=== PATIENT | male | born 1960 | race Caucasian/White ===

== ENCOUNTER 2016-10-04 15:07 | Inpatient (IN) ==
--- NOTE | 2016-10-04 15:14 | Emergency Department Note ---
Disposition Clinical Impression: Depression Disposition: Still a Patient Referrals: NO,PCP [Primary Care Provider] - Forms: ED Satisfaction Letter Psych HPI - General Chief Complaint: ED Psychiatric Symptoms Stated Complaint: SI Time Seen by Provider: 10/04/16 15:10 Source: patient Mode of arrival: ambulatory Limitations: no limitations Nursing Notes Reviewed: Yes Vital Signs Reviewed: Yes - History of Present Illness HPI Narrative: 56-year-old who comes in complaining of depression and suicidal ideation. Patient states he has been drinking today. Patient when asked did give sarcastic answers. When asked when his depression started he stated his birthday. Pt complaint: suicidal ideation, feels depressed If medical clearance, reason: psychiatric condition Onset (ago): unknown Duration: constant History of similar episodes: Yes Improves with: none Worsens with: none Context: recent alcohol abuse Alleged intoxication: Yes Associated Psychiatric Symptoms: depression, suicidal ideation Associated symptoms: Reports: denies other symptoms Treatments prior to arrival: none - Related Data Previous Rx's Medication Instructions Recorded Chlordiazepoxide [Librium] 25 mg PO TID #60 capsule 05/27/16 Folic Acid 1 mg PO DAILY #30 tablet 05/27/16 Thiamine (B-1) [Vitamin B-1] 100 mg PO DAILY #30 tablet 05/27/16 Allergies Allergy/AdvReac Type Severity Reaction Status Date / Time No Known Allergies Allergy Verified 04/21/15 13:40 Constitutional: Denies: fever, chills, weakness, weight change Eyes: Denies: eye pain, eye discharge, vision change ENT ED: Denies: ear pain, throat pain, dental pain, hearing loss, epistaxis, congestion, dysphagia Cardiovascular: Denies: chest pain, palpitations, dyspnea on exertion, edema, syncope Respiratory: Denies: cough, dyspnea, wheezes, hemoptysis, stridor Gastrointestinal: Denies: abdominal pain, nausea, vomiting, diarrhea, constipation, hematemesis, melena, hematochezia Genitourinary: Denies: urgency, dysuria, frequency, hematuria Musculoskeletal: Denies: back pain, neck pain, arthralgia, myalgia Integumentary: Denies: rash, abrasion, lesions Neurological: Denies: headache, weakness, numbness, paresthesias, confusion, abnormal gait, vertigo Psychiatric: Reports: depression, suicidal thoughts. Denies: anxiety, homicidal thoughts, auditory hallucinations, visual hallucinations Endocrine: Denies: fatigue Hematological/Lymphatic: Denies: easy bleeding, easy bruising Allergic/Immunologic: Denies: facial swelling, urticaria Past Medical History - Past Medical History Medical history: Reports: cancer, hepatitis Surgical history: Reports: appendectomy Psychiatric history: Reports: PTSD - Social History Smoking Status: Current every day smoker Smokeless Tobacco Status: No Alcohol use: Reports: occasionally Drug use: Reports: none Physical Exam - General Limitations: no limitations General appearance: alert, in no apparent distress - Head Head exam: atraumatic, normocephalic, normal inspection - Eye Eye exam: Present: normal appearance, PERRL, EOMI - ENT ENT exam: normal exam, normal oropharynx, mucous membranes moist - Neck Neck exam: Present: normal inspection, full ROM, trachea midline - Chest Chest inspection: Present: normal inspection, symmetric chest wall rise - Respiratory Respiratory exam: Present: normal lung sounds bilaterally - Cardiovascular Cardiovascular exam: Present: regular rate, normal rhythm, normal heart sounds - Abdominal Exam Abdominal exam: Present: soft, Non-Tender. Absent: tenderness, distention, guarding, rebound, rigidity - Extremities Exam Extremities exam: Present: normal inspection, full ROM. Absent: tenderness, pedal edema - Expanded Lower Extremity Exam Neurovascular/Tendon exam: Absent: motor deficit, sensory deficit, tendon deficit Gait: observed and normal - Back Exam Back exam: Present: normal inspection, full ROM. Absent: tenderness - Neurological Exam Neurological exam: Present: alert, oriented X3 - Psychiatric Psychiatric exam: Present: depressed, agitated - Skin Skin exam: Present: warm, dry, intact, normal color Course Vital Signs Temperature 98.2 F 10/04/16 15:10 Pulse Rate 65 10/04/16 15:10 Respiratory Rate 16 10/04/16 15:10 Blood Pressure 128/89 10/04/16 15:10 O2 Sat by Pulse Oximetry 95 10/04/16 15:10 Temperature 98.2 F 10/04/16 15:10 Pulse Rate 65 10/04/16 15:10 Respiratory Rate 16 10/04/16 15:10 Blood Pressure 128/89 10/04/16 15:10 O2 Sat by Pulse Oximetry 95 10/04/16 15:10 Oxygen Delivery Oxygen Delivery Room Air Psych - Lab Data Result diagrams: 10/04/16 15:47 10/04/16 15:47 Lab Results 10/04/16 10/04/16 10/04/16 Range/Units 15:17 15:17 15:47 WBC 7.5 (4.3-11.1) K/mcL RBC 4.10 L (4.19-5.50) M/mcL Hgb 13.1 (12.9-16.9) g/dL Hct 38.6 (37.5-50.1) % MCV 94.1 (83.0-100.0) fL MCH 32.0 (28.0-33.3) pg MCHC 33.9 (31.6-35.5) g/dL RDW 14.5 (11.5-14.5) % Plt Count 182 (140-400) K/mcL MPV 9.4 (9.4-12.4) fL Immature Gran % 0.3 (0-4) % Seg Neutrophils % 67.4 % Lymphocytes % 23.8 % Monocytes % 6.9 % Eosinophils % 1.3 % Basophils % 0.3 % Neutrophils # 5.1 (1.6-8.9) K/mcL Lymphocytes # 1.8 (0.6-4.6) K/mcL Monocytes # 0.5 (0.0-1.3) K/mcL Eosinophils # 0.1 (0.0-0.6) K/mcL Basophils # 0.0 (0.0-0.2) K/mcL Sodium (136-145) mEq/L Potassium (3.5-4.5) mEq/L Chloride (98-109) mEq/L Carbon Dioxide (19-29) mEq/L BUN (8-26) mg/dL Creatinine (0.72-1.25) mg/dL Est GFR ( Amer) (> 60) Est GFR (Non-Af Amer) (> 60) BUN/Creatinine Ratio (6-26) Glucose (70-99) mg/dL Calculated Osmolality (280-300) Calcium (8.6-10.8) mg/dL Urine Color Yellow (Yellow) Urine Clarity Clear (Clear) Urine pH 6.5 (5.0-8.0) pH Units Ur Specific [place] < 1.005 L (1.010-1.025) Urine Protein Negative (Neg-Trace) mg/dL Urine Glucose (UA) Normal (Normal) mg/dL Urine Ketones Negative (Negative) mg/dL Urine Blood Negative (Negative) Urine Nitrite Negative (Negative) Urine Bilirubin Negative (Negative) Urine Urobilinogen Normal (Normal) mg/dL Ur Leukocyte Esterase Negative (Negative) Salicylates (15-30) mg/dL Urine Opiates Screen Negative (Sqawep=475) ng/mL Acetaminophen (10-30) mcg/mL Ur Barbiturates Screen Negative (Zxccds=904) ng/mL Ur Phencyclidine Scrn Negative (Cutoff=25) ng/mL Ur Amphetamines Screen Negative (Oowywe=4553) ng/mL U Benzodiazepines Scrn Negative (Flvppm=853) ng/mL Urine Cocaine Screen Negative (Cutoff= 300) ng/mL U Marijuana (THC) Screen Negative (Cutoff = 50) ng/mL Ethyl Alcohol (0-10) mg/dL 10/04/16 10/04/16 Range/Units 15:47 21:16 WBC (4.3-11.1) K/mcL RBC (4.19-5.50) M/mcL Hgb (12.9-16.9) g/dL Hct (37.5-50.1) % MCV (83.0-100.0) fL MCH (28.0-33.3) pg MCHC (31.6-35.5) g/dL RDW (11.5-14.5) % Plt Count (140-400) K/mcL MPV (9.4-12.4) fL Immature Gran % (0-4) % Seg Neutrophils % % Lymphocytes % % Monocytes % % Eosinophils % % Basophils % % Neutrophils # (1.6-8.9) K/mcL Lymphocytes # (0.6-4.6) K/mcL Monocytes # (0.0-1.3) K/mcL Eosinophils # (0.0-0.6) K/mcL Basophils # (0.0-0.2) K/mcL Sodium 140 (136-145) mEq/L Potassium 4.1 (3.5-4.5) mEq/L Chloride 105 (98-109) mEq/L Carbon Dioxide 21 (19-29) mEq/L BUN 8 (8-26) mg/dL Creatinine 0.89 (0.72-1.25) mg/dL Est GFR ( Amer) > 60 (> 60) Est GFR (Non-Af Amer) > 60 (> 60) BUN/Creatinine Ratio 9 (6-26) Glucose 100 H (70-99) mg/dL Calculated Osmolality 288 (280-300) Calcium 8.7 (8.6-10.8) mg/dL Urine Color (Yellow) Urine Clarity (Clear) Urine pH (5.0-8.0) pH Units Ur Specific [place] (1.010-1.025) Urine Protein (Neg-Trace) mg/dL Urine Glucose (UA) (Normal) mg/dL Urine Ketones (Negative) mg/dL Urine Blood (Negative) Urine Nitrite (Negative) Urine Bilirubin (Negative) Urine Urobilinogen (Normal) mg/dL Ur Leukocyte Esterase (Negative) Salicylates < 5.0 L (15-30) mg/dL Urine Opiates Screen (Ckrxee=438) ng/mL Acetaminophen < 1.0 L (10-30) mcg/mL Ur Barbiturates Screen (Jnxkoe=868) ng/mL Ur Phencyclidine Scrn (Cutoff=25) ng/mL Ur Amphetamines Screen (Kwvibo=5484) ng/mL U Benzodiazepines Scrn (Ysoatg=811) ng/mL Urine Cocaine Screen (Cutoff= 300) ng/mL U Marijuana (THC) Screen (Cutoff = 50) ng/mL Ethyl Alcohol 212 H 58 H (0-10) mg/dL Psychiatric Medical Clearance - Medical Clearance Checklist Medical History: No Social History Section defined Current Vitals: Last Vital Signs Temp 98.2 F 10/04/16 15:10 Pulse 65 10/04/16 15:10 Resp 16 10/04/16 15:10 BP 128/89 10/04/16 15:10 Pulse Ox 95 10/04/16 15:10 Psychiatric Lab Panel: Drug Levels and Toxicity 10/04/16 10/04/16 10/04/16 15:17 15:47 21:16 Urine Opiates Screen Negative Acetaminophen < 1.0 L Ur Barbiturates Screen Negative Ur Phencyclidine Scrn Negative Ur Amphetamines Screen Negative U Benzodiazepines Scrn Negative Urine Cocaine Screen Negative U Marijuana (THC) Screen Negative Ethyl Alcohol 212 H 58 H Abnormal Labs: Abnormal lab results RBC 4.10 M/mcL (4.19-5.50) L 10/04/16 15:47 Glucose 100 mg/dL (70-99) H 10/04/16 15:47 Ur Specific [place] < 1.005 (1.010-1.025) L 10/04/16 15:17 Salicylates < 5.0 mg/dL (15-30) L 10/04/16 15:47 Acetaminophen < 1.0 mcg/mL (10-30) L 10/04/16 15:47 Ethyl Alcohol 58 mg/dL (0-10) H 10/04/16 21:16 Statement of Medical Clearance: I have evaluated the patient, reviewed diagnostic information, and certify that the patient's medical condition is sufficiently stable that transfer to the psychiatric unit does not pose a significant risk of deterioration. S.B.A.R. - S.B.A.R. Recommendation: Recommendation based on pending studies, treatments, or consults S.B.A.RJustin Report Given to: Dr Rafael HicksBJustinADominik Repor Time: 23:00 (Patient is pending 1 a evaluation disposition based on their findings.)
[2016-10-04 15:36] LABS: Bilirubin,Urine Negative (Negative); Blood,Urine Negative (Negative); Clarity,Urine Clear (Clear); Color,Urine Yellow (Yellow); Glucose,Urine (UA) Normal (Normal); Ketones,Urine Negative (Negative); Leukocyte Esterase,Urine Negative (Negative); Nitrite,Urine Negative (Negative); PH,Urine 6.5 pH Units (5.0-8.0); Protein,Urine Negative (Neg-Trace); Specific Gravity,Urine < 1.005 (1.010-1.025); Urobilinogen,Urine Normal (Normal)
[2016-10-04 15:43] LABS: Amphetamine Screen,Urine Negative ng/mL (Cutoff=1000); Barbiturate Screen,Urine Negative ng/mL (Cutoff=200); Benzodiazepines Screen,Urine Negative ng/mL (Cutoff=200); Cannabinoid Screen,Urine Negative ng/mL (Cutoff = 50); Cocaine Screen,Urine Negative ng/mL (Cutoff= 300); Opiate Screen,Urine Negative ng/mL (Cutoff=300); Phencyclidine Screen,Urine Negative ng/mL (Cutoff=25)
[2016-10-04 16:11] LABS: Basophils % 0.3 %; Eosinophils # 0.1 K/mcL (0.0-0.6); Eosinophils % 1.3 %; Hematocrit 38.6 % (37.5-50.1); Hemoglobin 13.1 g/dL (12.9-16.9); Immature Granulocytes % 0.3 % (0-4); Lymphocytes # 1.8 K/mcL (0.6-4.6); Lymphocytes % 23.8 %; Mean Corpuscular HGB Conc 33.9 g/dL (31.6-35.5); Mean Corpuscular Volume 94.1 fL (83.0-100.0); Mean Platelet Volume 9.4 fL (9.4-12.4); Monocytes # 0.5 K/mcL (0.0-1.3); Monocytes % 6.9 %; Neutrophils # 5.1 K/mcL (1.6-8.9); Platelet Count 182 K/mcL (140-400); Red Cell Distribution Width 14.5 % (11.5-14.5); Segmented Neutrophils % 67.4 %
[2016-10-04 16:27] LABS: BUN/Creatinine Ratio 9 (6-26); Blood Urea Nitrogen 8 mg/dL (8-26); Calcium 8.7 mg/dL (8.6-10.8); Carbon Dioxide 21 mEq/L (19-29); Chloride 105 mEq/L (98-109); Ethanol 212 mg/dL (0-10); Glucose 100 mg/dL (70-99); Osmolality,Calculated 288 (280-300); Potassium 4.1 mEq/L (3.5-4.5); Sodium 140 mEq/L (136-145); eGFR For African Americans > 60 (> 60); eGFR For Non-African Americans > 60 (> 60)
[2016-10-04 16:28] LABS: Acetaminophen < 1.0 mcg/mL (10-30); Salicylate < 5.0 mg/dL (15-30)
[2016-10-04] MEDS ORDERED: *HR* LORazepam 1 MG TABLET PO ONE (23:53)
[2016-10-05] MEDS: Nicotine 14 MG PATCH.TD24 TD SCH ×2 (00:02→08:27)
[2016-10-05 01:12] LABS: Ethanol < 10 mg/dL (0-10)
[2016-10-05 01:34] LABS: Thyroid Stimulating Hormone 0.703 mcIU/mL (0.350-4.840)
[2016-10-05] MEDS ORDERED: *HR* LORazepam 1 MG TABLET PO ONE ×4 (04:20→16:03)
--- NOTE | 2016-10-05 07:41 | Emergency Department Note ---
Disposition Clinical Impression: Suicidal ideation Depression Qualifiers: Depression Type: unspecified Qualified Code(s): F32.9 - Major depressive disorder, single episode, unspecified Disposition: Transfer Psychiatric Hosp Condition: Fair Referrals: NO,PCP [Primary Care Provider] - Forms: ED Satisfaction Letter Psych HPI - General Chief Complaint: ED Psychiatric Symptoms Stated Complaint: SI Time Seen by Provider: 10/04/16 15:10 Source: patient Mode of arrival: ambulatory Nursing Notes Reviewed: Yes Vital Signs Reviewed: Yes - History of Present Illness Duration: constant Improves with: none Worsens with: none Associated symptoms: Reports: denies other symptoms Treatments prior to arrival: none - Related Data Previous Rx's Medication Instructions Recorded Chlordiazepoxide [Librium] 25 mg PO TID #60 capsule 05/27/16 Folic Acid 1 mg PO DAILY #30 tablet 05/27/16 Thiamine (B-1) [Vitamin B-1] 100 mg PO DAILY #30 tablet 05/27/16 Allergies Allergy/AdvReac Type Severity Reaction Status Date / Time No Known Allergies Allergy Verified 04/21/15 13:40 Constitutional: Denies: fever, chills, weakness, weight change Eyes: Denies: eye pain, eye discharge, vision change ENT ED: Denies: ear pain, throat pain, dental pain, hearing loss, epistaxis, congestion, dysphagia Cardiovascular: Denies: chest pain, palpitations, dyspnea on exertion, edema, syncope Respiratory: Denies: cough, dyspnea, wheezes, hemoptysis, stridor Gastrointestinal: Denies: abdominal pain, nausea, vomiting, diarrhea, constipation, hematemesis, melena, hematochezia Genitourinary: Denies: urgency, dysuria, frequency, hematuria Musculoskeletal: Denies: back pain, neck pain, arthralgia, myalgia Integumentary: Denies: rash, abrasion, lesions Neurological: Denies: headache, weakness, numbness, paresthesias, confusion, abnormal gait, vertigo Psychiatric: Reports: depression, suicidal thoughts. Denies: anxiety, homicidal thoughts, auditory hallucinations, visual hallucinations Endocrine: Denies: fatigue Hematological/Lymphatic: Denies: easy bleeding, easy bruising Allergic/Immunologic: Denies: facial swelling, urticaria Past Medical History - Past Medical History Medical history: Reports: cancer, hepatitis Surgical history: Reports: appendectomy Psychiatric history: Reports: PTSD - Social History Smoking Status: Current every day smoker Smokeless Tobacco Status: No Alcohol use: Reports: occasionally Drug use: Reports: none Physical Exam - General Limitations: no limitations General appearance: alert, in no apparent distress Course Course Narrative: This patient was signed out to me at shift change from Dr. Goyal. Please refer to his note for complete details of the history and physical examination. At shift change the patient has been medically cleared and is awaiting evaluation by the [facility]. Patient was seen and evaluated by the [facility] and they recommended inpatient admission. There are currently no beds available at this facility and the psych services working on placement and transfer of this patient. Shift change the patient is still awaiting placement at another facility. Patient was discussed with the oncoming dayshift teen, Dr. Glasgow and Dr. Carbajal, however the charting is been completed on this patient and they should not have to perform any charting or intervention on the patient unless there is a change in disposition or condition. Vital Signs Temperature 98.2 F 10/04/16 15:10 Pulse Rate 65 10/04/16 15:10 Respiratory Rate 16 10/04/16 15:10 Blood Pressure 128/89 10/04/16 15:10 O2 Sat by Pulse Oximetry 95 10/04/16 15:10 Temperature 98.2 F 10/04/16 15:10 Pulse Rate 64 10/05/16 06:45 Respiratory Rate 16 10/05/16 06:45 Blood Pressure 160/93 10/05/16 06:45 O2 Sat by Pulse Oximetry 98 10/05/16 06:45 Oxygen Delivery Oxygen Delivery Room Air Psych - Lab Data Result diagrams: 10/04/16 15:47 10/04/16 15:47 Lab Results 10/04/16 10/04/16 10/04/16 Range/Units 15:17 15:17 15:47 WBC 7.5 (4.3-11.1) K/mcL RBC 4.10 L (4.19-5.50) M/mcL Hgb 13.1 (12.9-16.9) g/dL Hct 38.6 (37.5-50.1) % MCV 94.1 (83.0-100.0) fL MCH 32.0 (28.0-33.3) pg MCHC 33.9 (31.6-35.5) g/dL RDW 14.5 (11.5-14.5) % Plt Count 182 (140-400) K/mcL MPV 9.4 (9.4-12.4) fL Immature Gran % 0.3 (0-4) % Seg Neutrophils % 67.4 % Lymphocytes % 23.8 % Monocytes % 6.9 % Eosinophils % 1.3 % Basophils % 0.3 % Neutrophils # 5.1 (1.6-8.9) K/mcL Lymphocytes # 1.8 (0.6-4.6) K/mcL Monocytes # 0.5 (0.0-1.3) K/mcL Eosinophils # 0.1 (0.0-0.6) K/mcL Basophils # 0.0 (0.0-0.2) K/mcL Sodium (136-145) mEq/L Potassium (3.5-4.5) mEq/L Chloride (98-109) mEq/L Carbon Dioxide (19-29) mEq/L BUN (8-26) mg/dL Creatinine (0.72-1.25) mg/dL Est GFR ( Amer) (> 60) Est GFR (Non-Af Amer) (> 60) BUN/Creatinine Ratio (6-26) Glucose (70-99) mg/dL Calculated Osmolality (280-300) Calcium (8.6-10.8) mg/dL TSH (0.350-4.840) mcIU/mL Urine Color Yellow (Yellow) Urine Clarity Clear (Clear) Urine pH 6.5 (5.0-8.0) pH Units Ur Specific [place] < 1.005 L (1.010-1.025) Urine Protein Negative (Neg-Trace) mg/dL Urine Glucose (UA) Normal (Normal) mg/dL Urine Ketones Negative (Negative) mg/dL Urine Blood Negative (Negative) Urine Nitrite Negative (Negative) Urine Bilirubin Negative (Negative) Urine Urobilinogen Normal (Normal) mg/dL Ur Leukocyte Esterase Negative (Negative) Salicylates (15-30) mg/dL Urine Opiates Screen Negative (Svvzxs=017) ng/mL Acetaminophen (10-30) mcg/mL Ur Barbiturates Screen Negative (Zakjjp=539) ng/mL Ur Phencyclidine Scrn Negative (Cutoff=25) ng/mL Ur Amphetamines Screen Negative (Rxwddl=1829) ng/mL U Benzodiazepines Scrn Negative (Klmefz=849) ng/mL Urine Cocaine Screen Negative (Cutoff= 300) ng/mL U Marijuana (THC) Screen Negative (Cutoff = 50) ng/mL Ethyl Alcohol (0-10) mg/dL 10/04/16 10/04/16 10/05/16 Range/Units 15:47 21:16 00:54 WBC (4.3-11.1) K/mcL RBC (4.19-5.50) M/mcL Hgb (12.9-16.9) g/dL Hct (37.5-50.1) % MCV (83.0-100.0) fL MCH (28.0-33.3) pg MCHC (31.6-35.5) g/dL RDW (11.5-14.5) % Plt Count (140-400) K/mcL MPV (9.4-12.4) fL Immature Gran % (0-4) % Seg Neutrophils % % Lymphocytes % % Monocytes % % Eosinophils % % Basophils % % Neutrophils # (1.6-8.9) K/mcL Lymphocytes # (0.6-4.6) K/mcL Monocytes # (0.0-1.3) K/mcL Eosinophils # (0.0-0.6) K/mcL Basophils # (0.0-0.2) K/mcL Sodium 140 (136-145) mEq/L Potassium 4.1 (3.5-4.5) mEq/L Chloride 105 (98-109) mEq/L Carbon Dioxide 21 (19-29) mEq/L BUN 8 (8-26) mg/dL Creatinine 0.89 (0.72-1.25) mg/dL Est GFR ( Amer) > 60 (> 60) Est GFR (Non-Af Amer) > 60 (> 60) BUN/Creatinine Ratio 9 (6-26) Glucose 100 H (70-99) mg/dL Calculated Osmolality 288 (280-300) Calcium 8.7 (8.6-10.8) mg/dL TSH 0.703 (0.350-4.840) mcIU/mL Urine Color (Yellow) Urine Clarity (Clear) Urine pH (5.0-8.0) pH Units Ur Specific [place] (1.010-1.025) Urine Protein (Neg-Trace) mg/dL Urine Glucose (UA) (Normal) mg/dL Urine Ketones (Negative) mg/dL Urine Blood (Negative) Urine Nitrite (Negative) Urine Bilirubin (Negative) Urine Urobilinogen (Normal) mg/dL Ur Leukocyte Esterase (Negative) Salicylates < 5.0 L (15-30) mg/dL Urine Opiates Screen (Btncoi=646) ng/mL Acetaminophen < 1.0 L (10-30) mcg/mL Ur Barbiturates Screen (Rqddwc=904) ng/mL Ur Phencyclidine Scrn (Cutoff=25) ng/mL Ur Amphetamines Screen (Uewtso=1013) ng/mL U Benzodiazepines Scrn (Wlsakl=034) ng/mL Urine Cocaine Screen (Cutoff= 300) ng/mL U Marijuana (THC) Screen (Cutoff = 50) ng/mL Ethyl Alcohol 212 H 58 H < 10 (0-10) mg/dL Psychiatric Medical Clearance - Medical Clearance Checklist Medical History: No Social History Section defined Current Vitals: Last Vital Signs Temp 98.2 F 10/04/16 15:10 Pulse 64 10/05/16 06:45 Resp 16 10/05/16 06:45 BP 160/93 10/05/16 06:45 Pulse Ox 98 10/05/16 06:45 Psychiatric Lab Panel: Drug Levels and Toxicity 10/04/16 10/04/16 10/04/16 15:17 15:47 21:16 Urine Opiates Screen Negative Acetaminophen < 1.0 L Ur Barbiturates Screen Negative Ur Phencyclidine Scrn Negative Ur Amphetamines Screen Negative U Benzodiazepines Scrn Negative Urine Cocaine Screen Negative U Marijuana (THC) Screen Negative Ethyl Alcohol 212 H 58 H 10/05/16 00:54 Urine Opiates Screen Acetaminophen Ur Barbiturates Screen Ur Phencyclidine Scrn Ur Amphetamines Screen U Benzodiazepines Scrn Urine Cocaine Screen U Marijuana (THC) Screen Ethyl Alcohol < 10 Abnormal Labs: Abnormal lab results RBC 4.10 M/mcL (4.19-5.50) L 10/04/16 15:47 Glucose 100 mg/dL (70-99) H 10/04/16 15:47 Ur Specific [place] < 1.005 (1.010-1.025) L 10/04/16 15:17 Salicylates < 5.0 mg/dL (15-30) L 10/04/16 15:47 Acetaminophen < 1.0 mcg/mL (10-30) L 10/04/16 15:47 Statement of Medical Clearance: I have evaluated the patient, reviewed diagnostic information, and certify that the patient's medical condition is sufficiently stable that transfer to the psychiatric unit does not pose a significant risk of deterioration.
[2016-10-05] MEDS ORDERED: Ibuprofen 400 MG TABLET PO PRN (16:44)
[2016-10-05] MEDS ORDERED: *HR* LORazepam 2 MG/ML VIAL IM PRN (16:44)
[2016-10-05] MEDS ORDERED: Haloperidol Lactate 5 MG/ML VIAL IM PRN (16:44)
[2016-10-05] MEDS: hydrOXYzine pamoate 25 MG CAPSULE PO PRN (18:58)
[2016-10-05] MEDS: *HR* LORazepam 1 MG TABLET PO PRN (20:11)
[2016-10-05] MEDS: traZODone 50 MG TABLET PO PRN ×2 (20:14→23:25)
[2016-10-06] MEDS: *HR* LORazepam 1 MG TABLET PO PRN ×4 (01:01→19:54)
[2016-10-06] MEDS: Nicotine 14 MG PATCH.TD24 TD SCH (08:43)
--- NOTE | 2016-10-06 11:25 | Psychiatry History & Physical ---
Date of Encounter: 10/06/16 Time of Encounter: 11:23 History of Present Illness Patient Stated Chief Complaint: suicidal, homeless Medicare Admission Attestation: For traditional Medicare patients the provided hospital inpatient services are reasonable and necessary and in the case of services not specified as inpatient -only under 42 CFR 419.22 (n), that they are appropriately provided as inpatient services in accordance 42 CFR 412.3. For Critical Access Hospital the patient may reasonably be expected to be discharged or transferred to a hospital within 96 hours after admission to the Critical Access Hospital. Admitted From: Emergency Dept History of Present Illness: Mr. Pro is a 56 year old male with long history of alcohol dependence and intoxication admitted for making suicidal threats and also he is homeless and on no medication, in the past he never followed up after discharge from the hospital. Past Med Surg Social Fam HX - Past Medical History Medical history: cancer, hepatitis - Past Psychiatric History Psychiatric history: Reports: no psych history - Past Surgical History Surgical History: appendectomy - Social History Smoking Status: Current every day smoker Smokeless Tobacco Status: No Alcohol use: occasionally Drug use: none Medications & Allergies Chlordiazepoxide [Librium] 25 mg PO TID #60 capsule 05/27/16 [Rx] Folic Acid 1 mg PO DAILY #30 tablet 05/27/16 [Rx] Thiamine (B-1) [Vitamin B-1] 100 mg PO DAILY #30 tablet 05/27/16 [Rx] Allergies No Known Allergies Allergy (Verified 04/21/15 13:40) Review of Systems Psychiatric: Reports: suicidal ideation, auditory hallucinations, visual hallucinations, confusion Mental Status Exam Patient orientation: Yes Person, Yes Time, Yes Place Level of alertness: Alert Patient appearance: Unkempt, Disheveled, Malodorous, Bizarre Behavior: nervous, anxious, distractible Psychomotor activity: Increased Eye contact: Maintains Eye Contact Mood description: Anxious, Irritable Affect description: labile, dysphoric Speech pattern: Coherent, Repetitive, Confabulation Speech volume: Normal Thought process: Linear, Goal Oriented Thought content: Yes Suicidal ideation Perceptual disturbances: No Auditory hallucinations, No Visual hallucinations Attention span: Capable of Focused Attention Memory description: Grossly Intact Patient reliability: Questionable Historian Intelligence estimate: Average Judgment: Limited Insight: Minimal Results - Vital Signs Vital signs: Temp Pulse Resp BP Pulse Ox 98.6 F 78 18 130/104 95 10/06/16 09:00 10/06/16 09:00 10/06/16 09:00 10/06/16 09:00 10/05/16 15:54 - Labs Labs: Laboratory Last Values WBC 7.5 K/mcL (4.3-11.1) 10/04/16 15:47 RBC 4.10 M/mcL (4.19-5.50) L 10/04/16 15:47 Hgb 13.1 g/dL (12.9-16.9) 10/04/16 15:47 Hct 38.6 % (37.5-50.1) 10/04/16 15:47 MCV 94.1 fL (83.0-100.0) 10/04/16 15:47 MCH 32.0 pg (28.0-33.3) 10/04/16 15:47 MCHC 33.9 g/dL (31.6-35.5) 10/04/16 15:47 RDW 14.5 % (11.5-14.5) 10/04/16 15:47 Plt Count 182 K/mcL (140-400) 10/04/16 15:47 MPV 9.4 fL (9.4-12.4) 10/04/16 15:47 Immature Gran % 0.3 % (0-4) 10/04/16 15:47 Seg Neutrophils % 67.4 % 10/04/16 15:47 Lymphocytes % 23.8 % 10/04/16 15:47 Monocytes % 6.9 % 10/04/16 15:47 Eosinophils % 1.3 % 10/04/16 15:47 Basophils % 0.3 % 10/04/16 15:47 Neutrophils # 5.1 K/mcL (1.6-8.9) 10/04/16 15:47 Lymphocytes # 1.8 K/mcL (0.6-4.6) 10/04/16 15:47 Monocytes # 0.5 K/mcL (0.0-1.3) 10/04/16 15:47 Eosinophils # 0.1 K/mcL (0.0-0.6) 10/04/16 15:47 Basophils # 0.0 K/mcL (0.0-0.2) 10/04/16 15:47 Sodium 140 mEq/L (136-145) 10/04/16 15:47 Potassium 4.1 mEq/L (3.5-4.5) 10/04/16 15:47 Chloride 105 mEq/L (98-109) 10/04/16 15:47 Carbon Dioxide 21 mEq/L (19-29) 10/04/16 15:47 BUN 8 mg/dL (8-26) 10/04/16 15:47 Creatinine 0.89 mg/dL (0.72-1.25) 10/04/16 15:47 Est GFR ( Amer) > 60 (> 60) 10/04/16 15:47 Est GFR (Non-Af Amer) > 60 (> 60) 10/04/16 15:47 BUN/Creatinine Ratio 9 (6-26) 10/04/16 15:47 Glucose 100 mg/dL (70-99) H 10/04/16 15:47 Calculated Osmolality 288 (280-300) 10/04/16 15:47 Calcium 8.7 mg/dL (8.6-10.8) 10/04/16 15:47 TSH 0.703 mcIU/mL (0.350-4.840) 10/05/16 00:54 Urine Color Yellow (Yellow) 10/04/16 15:17 Urine Clarity Clear (Clear) 10/04/16 15:17 Urine pH 6.5 pH Units (5.0-8.0) 10/04/16 15:17 Ur Specific [place] < 1.005 (1.010-1.025) L 10/04/16 15:17 Urine Protein Negative mg/dL (Neg-Trace) 10/04/16 15:17 Urine Glucose (UA) Normal mg/dL (Normal) 10/04/16 15:17 Urine Ketones Negative mg/dL (Negative) 10/04/16 15:17 Urine Blood Negative (Negative) 10/04/16 15:17 Urine Nitrite Negative (Negative) 10/04/16 15:17 Urine Bilirubin Negative (Negative) 10/04/16 15:17 Urine Urobilinogen Normal mg/dL (Normal) 10/04/16 15:17 Ur Leukocyte Esterase Negative (Negative) 10/04/16 15:17 Salicylates < 5.0 mg/dL (15-30) L 10/04/16 15:47 Urine Opiates Screen Negative ng/mL (Ohafqn=879) 10/04/16 15:17 Acetaminophen < 1.0 mcg/mL (10-30) L 10/04/16 15:47 Ur Barbiturates Screen Negative ng/mL (Uclhxe=578) 10/04/16 15:17 Ur Phencyclidine Scrn Negative ng/mL (Cutoff=25) 10/04/16 15:17 Ur Amphetamines Screen Negative ng/mL (Temozr=3491) 10/04/16 15:17 U Benzodiazepines Scrn Negative ng/mL (Iyjkpy=535) 10/04/16 15:17 Urine Cocaine Screen Negative ng/mL (Cutoff= 300) 10/04/16 15:17 U Marijuana (THC) Screen Negative ng/mL (Cutoff = 50) 10/04/16 15:17 Ethyl Alcohol < 10 mg/dL (0-10) 10/05/16 00:54 Assessment and Plan (1) Alcohol withdrawal Current visit: Yes Status: Acute Plan: Admit inpatient for safety and stabilization, Close observation, Suicide Precautions per unit protocol, Encourage participation in unit milieu, Group Therapy, Monitor sleep, Monitor appetite Risks, benefits, side effects, alternatives discussed w/pt: Yes Patient agreeable to treatment: Yes Estimated Length of Stay (Days): 3 Qualifiers: Complication of substance-induced condition: with delirium Qualified Code(s ): F10.231 - Alcohol dependence with withdrawal delirium
[2016-10-06] MEDS: Thiamine (B-1) 100 MG TABLET PO SCH (12:39)
[2016-10-06] MEDS: hydrOXYzine pamoate 25 MG CAPSULE PO PRN ×2 (16:08→22:57)
[2016-10-06] MEDS: traZODone 50 MG TABLET PO PRN (22:57)
[2016-10-07] MEDS: Nicotine 14 MG PATCH.TD24 TD SCH (08:51)
[2016-10-07] MEDS: Thiamine (B-1) 100 MG TABLET PO SCH (08:52)
[2016-10-07] MEDS: hydrOXYzine pamoate 25 MG CAPSULE PO PRN ×3 (08:53→22:47)
[2016-10-07] MEDS: *HR* LORazepam 1 MG TABLET PO PRN (13:50)
--- NOTE | 2016-10-07 20:34 | Psychiatry Progress Note ---
Date of Encounter: 10/07/16 Time of Encounter: 14:00 Subjective Interval history: "I really don't know", response to my question asking him how he is doing. He talks to me about feeling anxious still, but less than it was. Being very slow, tired and having feelings of depression and passive thoughts of suicide. He has not active plan to for suicide. He is hopeless and feels helpless regarding where to go from here and concerned over needing to turn his life around, but not having the skills to do it regarding his drug abuse and mental health. He is eating better, and his sleep is slowly improving. He is starting to engage more and not isolate so much. Going to groups and making an effort. Review of Systems Psychiatric: Reports: depression, anxiety, suicidal ideation, difficulty concentrating, hopelessness Objective: Exam Patient orientation: Yes Person, Yes Time, Yes Place Level of alertness: Alert, Follows commands Patient appearance: Appropriate, Well Groomed (greatly improved from previous days) Behavior: anxious, distractible Psychomotor activity: Normal Eye contact: Maintains Eye Contact Mood description: Anxious Affect description: constricted, flat Speech pattern: Normal rate, Normal rhythm, Normal tone, Coherent Speech volume: Normal Thought process: Linear, Goal Oriented Thought content: Yes Suicidal ideation Judgment: Limited Insight: Partial Results - Vital Signs Vital Signs: Temp Pulse Resp BP Pulse Ox 99 F 72 16 125/88 95 10/07/16 19:48 10/07/16 19:48 10/07/16 19:48 10/07/16 19:48 10/05/16 15:54 Assessment and Plan (1) Depression Current visit: Yes Status: Chronic Plan: Continue hospitalization Risks, benefits, side effects, alternatives discussed w/pt: Yes (continue to follow withdraw protocols and discussed antidepressants) Patient agreeable to treatment: Yes Qualifiers: Depression Type: unspecified Qualified Code(s): F32.9 - Major depressive disorder, single episode, unspecified (2) Alcohol use disorder, severe, dependence Current visit: No Status: Chronic Plan: Encourage participation in unit milieu, Group Therapy, Monitor sleep Patient agreeable to treatment: Yes (Alcohol withdraw protocols in place) Consult Discharge Plan - Plan Referrals: NO,PCP [Primary Care Provider] -
[2016-10-08] MEDS: *HR* LORazepam 1 MG TABLET PO PRN ×2 (00:52→08:31)
[2016-10-08] MEDS: Nicotine 14 MG PATCH.TD24 TD SCH (08:22)
[2016-10-08] MEDS: Thiamine (B-1) 100 MG TABLET PO SCH (08:23)
[2016-10-08] MEDS ORDERED: *HR* LORazepam 1 MG TABLET PO PRN (12:18)
--- NOTE | 2016-10-08 12:31 | Psychiatry Progress Note ---
Date of Encounter: 10/08/16 Time of Encounter: 10:00 Subjective Interval history: Mr. Pro tells me he is doing better today. His anxiety levels are going down. "I think ready to leave soon". He is on a Librium taper secondary to his alcohol withdrawal and that will continue. He states he has no active suicidal ideation. He states his depression is less; sleeping better, eating fine and his energy is coming back and is not feeling sad nor feeling hopeless or helpless. I discussed with him discharge plans in regards to where he will be living. The social work as arranged for him to be accepted at a detention in [place]. He states that he will think about that, but he does not think he wants to go to [place]. He just wants to go back to living in the streets, which is what he says is comfortable with and likes. Review of Systems Psychiatric: Reports: depression, anxiety Objective: Exam Patient orientation: Yes Person, Yes Time, Yes Place Level of alertness: Alert, Follows commands Patient appearance: Appropriate, Well Groomed (greatly improved from previous days) Behavior: anxious Psychomotor activity: Normal Eye contact: Maintains Eye Contact Mood description: Anxious (less anxious than previously) Affect description: congruent with mood Speech pattern: Normal rate, Normal rhythm, Normal tone, Coherent Speech volume: Normal Thought process: Linear, Goal Oriented Thought content: Yes Intact Judgment: Limited Insight: Partial Results - Vital Signs Vital Signs: Temp Pulse Resp BP Pulse Ox 98.6 F 70 16 124/81 95 10/08/16 12:00 10/08/16 12:00 10/08/16 12:00 10/08/16 12:00 10/05/16 15:54 Assessment and Plan (1) Depression Current visit: Yes Status: Chronic Plan: Continue hospitalization Risks, benefits, side effects, alternatives discussed w/pt: Yes (continue to follow withdraw protocols and discussed antidepressants) Patient agreeable to treatment: Yes Qualifiers: Depression Type: unspecified Qualified Code(s): F32.9 - Major depressive disorder, single episode, unspecified (2) Alcohol use disorder, severe, dependence Current visit: No Status: Chronic Plan: Encourage participation in unit milieu, Group Therapy, Monitor sleep Patient agreeable to treatment: Yes (Alcohol withdraw protocols in place) Consult Discharge Plan - Plan Referrals: [facility] [Outside] - 10/10/16 11:00 am (The above appointment is with Donna Montgomery.) Mohamud Messina, PAC [Physician Smelter Charger] - 10/20/16 2:00 pm (The above appointment is with Mohamud Messina.)
[2016-10-08] MEDS: *HR* LORazepam 0.5 MG TABLET PO PRN (19:23)
[2016-10-09] MEDS: *HR* LORazepam 0.5 MG TABLET PO PRN ×2 (01:21→08:04)
[2016-10-09] MEDS: Nicotine 14 MG PATCH.TD24 TD SCH (08:04)
[2016-10-09] MEDS: Thiamine (B-1) 100 MG TABLET PO SCH (08:04)
[2016-10-09 09:46] VITALS: BP 128/77
--- NOTE | 2016-10-09 12:09 | Discharge Summary ---
Date of Encounter: 10/09/16 Time of Encounter: 11:40 Diagnosis - Discharge Diagnosis (1) Depression Status: Chronic Qualifiers: Depression Type: other depression Qualified Code(s): F32.89 - Other specified depressive episodes (2) Alcohol use disorder, severe, dependence Status: Chronic Medications - Discharge Medications Chlordiazepoxide [Librium] 25 mg PO TID #60 capsule 05/27/16 [Rx] Folic Acid 1 mg PO DAILY #30 tablet 05/27/16 [Rx] Thiamine (B-1) [Vitamin B-1] 100 mg PO DAILY #30 tablet 05/27/16 [Rx] Allergies No Known Allergies Allergy (Verified 04/21/15 13:40) Provider Date of admission: 10/07/16 14:23 Primary care physician: PCP NO Discharging clinician: Antonio Alexander Assessment and Plan - Patient/Caregiver Discharge Instructions Activity: resume usual activities as tolerated Diet: regular diet - Follow up Plan Follow up with: [facility] [Outside] - 10/10/16 11:00 am (The above appointment is with Donna Montgomery.) Mohamud Messina PAC [Physician Studio Producer] - 10/20/16 2:00 pm (The above appointment is with Mohamud Messina.) Functional capacity at discharge: independent ambulation Overall status at discharge: Stable Disposition: Transfer Other Hospital Course Hospital course: Mr. rPo is a 56 year old male was admitted to via the emergency department after reporting suicidal ideation. It was noted that patient has an extensive history of alcohol dependency and abuse and was intoxicated when he presented to the emergency room. Patient was placed on alcohol withdrawal protocols and given Librium 25 mg PO TID to prevent seizures as well as folic acid and thiamine. Patient was also given Ativan 1 mg PO prn for breakthrough anxiety. Patient had a difficult time sleeping at first and continued to report being depressed and anxious with passive thoughts of suicide. After 1 day of the alcohol withdrawal protocol, the patient's sleep improved and he became more interactive on the unit. Patient reported some passive thoughts of dying but no longer reporting active suicidal ideations. Patient reported a decrease in depression as well as decreased anxiety throughout his stay. Patient was unwilling to take other medications to treat his mental health issues; depression and anxiety. He has a history of poor compliance with medications and follow-ups and just had no interest. The social media analyst found placement for him and a homeless halfway in [place] upon discharge as he is homeless. Patient did not want to go there he stated his preference was to go back to the streets where he knew people and the lifestyle he was accustomed to. He was tapered off the Librium and Ativan over a 24+ hour period after his anxiety improved and discharge plans were put in place. He told me upon final interview "I just needed a break". He stated he was mildly anxious about leaving and requested a maintenance dose of Ativan upon discharge. (Patient has an extensive history of substance abuse is explained to him that there are other medications that can be used to treat his depression and anxiety which had discussed with him previously, such as SSRI that he did not want. He denied auditory or visual hallucinations he denied suicidal or homicidal ideations. He was eating better, his mood was stable, he was sleeping fine, there were no racing thoughts or impulsivity. Patient got counseling on substance abuse and encouraged to stay clean and sober. He was also encouraged to work with the outpatient facility he was assigned to in order to get an ID card; he was aware of the process but had never taken the time or initiative to complete it. He said he would think about it. It was explained to him that he would have more options for housing. Without an ID card, most housing facilities could not or would not take him. Patient was discharged in stable condition with no benzodiazepines or other medication. Time spent discussing smoking cessation with patient: 3 to 10 minutes Does patient wish to continue nicotine replacement upon disc: No - Time Spent with Patient Total time spent providing and/or coordinating discharge services: 25 min Less than 30 minutes Quality - Multiple Antipsychotics Patient discharged on 2 or more antipsychotic medications: No Procedures - Procedures Procedures: Crisis Stabilization Mental Status Exam - Mental Status Exam Patient orientation: Yes Person, Yes Time, Yes Place Level of alertness: Alert, Follows commands Patient appearance: Appropriate, Well Groomed Behavior: anxious (mildly, no tremors) Psychomotor activity: Normal Eye contact: Maintains Eye Contact Mood description: Anxious Affect description: congruent with mood Speech pattern: Normal rate, Normal rhythm, Normal tone, Coherent Speech Volume: Normal Thought process: Linear, Goal Oriented Thought Content: Yes Intact Judgment: Limited Insight: Partial
== END 2016-10-09 12:35 | disposition other institution (70) | DRG 753 ==
LOC: EMEROO 15:07 → 1ANU 10-05 16:17 → INTOOBSV 10-05 16:17 → 1ANU 10-05 16:34 → SUATTDRO 10-07 14:23
PROVIDERS: ADMIT Psychiatry & Neurology Psychiatry; ATTEND Psychiatry & Neurology Psychiatry

== ENCOUNTER 2017-07-27 15:16 | Observation (INO) ==
[2017-07-27 15:43] LABS: Bilirubin,Urine Negative (Negative); Blood,Urine Negative (Negative); Clarity,Urine Clear (Clear); Color,Urine Yellow (Yellow); Glucose,Urine (UA) Normal (Normal); Ketones,Urine Trace mg/dL (Negative); Leukocyte Esterase,Urine Negative (Negative); Nitrite,Urine Negative (Negative); Protein,Urine 30 mg/dL (Neg-Trace); Specific Gravity,Urine 1.014 (1.010-1.025); Urobilinogen,Urine Normal (Normal)
[2017-07-27 15:45] LABS: Bacteria,Urine None Seen per hpf (None-Few); Hyaline Casts,Urine None Seen per lpf (None-Few); RBC,Urine 0-3 per hpf (0-3); Squamous Epithelial Cell,Urine Moderate per lpf (None-Few); WBC,Urine 0-3 per hpf (0-3)
[2017-07-27 16:02] LABS: Basophils % 0.7 %; Eosinophils # 0.1 K/mcL (0.0-0.6); Eosinophils % 1.6 %; Hematocrit 39.9 % (37.5-50.1); Hemoglobin 13.7 g/dL (12.9-16.9); Immature Granulocytes % 0.2 % (0-4); Immature Platelets 3.8 % (1.1-6.1); Lymphocytes % 36.2 %; Mean Corpuscular HGB Conc 34.3 g/dL (31.6-35.5); Mean Corpuscular Hemoglobin 31.7 pg (28.0-33.3); Mean Corpuscular Volume 92.4 fL (83.0-100.0); Mean Platelet Volume 9.5 fL (9.4-12.4); Monocytes # 0.5 K/mcL (0.0-1.3); Monocytes % 8.2 %; Platelet Count 178 K/mcL (140-400); Red Blood Count 4.32 M/mcL (4.19-5.50); Red Cell Distribution Width 14.7 % (11.5-14.5); Segmented Neutrophils % 53.1 %
[2017-07-27 16:24] LABS: Acetaminophen < 1.0 mcg/mL (10-30); BUN/Creatinine Ratio 11 (6-26); Blood Urea Nitrogen 11 mg/dL (8-26); Calcium 8.7 mg/dL (8.6-10.8); Carbon Dioxide 20 mEq/L (19-29); Chloride 107 mEq/L (98-109); Ethanol 202 mg/dL (0-10); Glucose 109 mg/dL (70-99); Osmolality,Calculated 294 (280-300); Potassium 4.2 mEq/L (3.5-4.5); Salicylate < 5.0 mg/dL (15-30); Sodium 142 mEq/L (136-145); eGFR For African Americans > 60 (> 60); eGFR For Non-African Americans > 60 (> 60)
[2017-07-27 16:34] LABS: Amphetamine Screen,Urine Negative ng/mL (Cutoff=1000); Barbiturate Screen,Urine Negative ng/mL (Cutoff=200); Benzodiazepines Screen,Urine Negative ng/mL (Cutoff=200); Cannabinoid Screen,Urine Positive ng/mL (Cutoff = 50); Cocaine Screen,Urine Positive ng/mL (Cutoff= 300); Opiate Screen,Urine Negative ng/mL (Cutoff=300); Phencyclidine Screen,Urine Negative ng/mL (Cutoff=25)
--- NOTE | 2017-07-27 17:22 | Emergency Department Note ---
Disposition Clinical Impression: Suicidal ideation, Alcohol abuse Disposition: Still a Patient Condition: Good Referrals: NONE,PCP [Primary Care Provider] - Forms: ED Satisfaction Letter General Adult HPI - General Chief complaint: ED Psychiatric Symptoms Stated complaint: SI Time Seen by Provider: 07/27/17 17:09 Source: patient Limitations: no limitations Nursing Notes Reviewed: Yes Vital Signs Reviewed: Yes - History of Present Illness HPI Narrative: 57-year-old male who presents due to suicidal ideation. He is homeless and an alcoholic. He has had prior admissions for the same. He denies actually currently attempting. He says that he would use a gun and shoot himself in the head. He also states that he just "hurts all over" from his arthritis. He denies having a fever. No nausea or vomiting. No abdominal pain. Says that his feet do hurt. Radiation: non-radiation Pain Severity: moderate Pain Scale: 7 Consistency: constant Improves with: nothing Worsens with: nothing Associated symptoms: Reports: denies other symptoms Treatments Prior to Arrival: none - Related Data Previous Rx's Medication Instructions Recorded Chlordiazepoxide [Librium] 25 mg PO TID #60 capsule 05/27/16 Folic Acid 1 mg PO DAILY #30 tablet 05/27/16 Thiamine (B-1) [Vitamin B-1] 100 mg PO DAILY #30 tablet 05/27/16 Allergies Allergy/AdvReac Type Severity Reaction Status Date / Time No Known Allergies Allergy Verified 04/21/15 13:40 All systems ED: reviewed and negative except as stated. Constitutional: Denies: fever Cardiovascular: Denies: chest pain Respiratory: Denies: cough Gastrointestinal: Denies: abdominal pain Integumentary: Denies: rash Past Medical History - Past Medical History Medical history: Reports: cancer, hepatitis Surgical history: Reports: appendectomy Psychiatric history: Reports: anxiety, depression - Social History Smoking Status: Current every day smoker Smokeless Tobacco Status: No Alcohol use: Reports: occasionally Drug use: Reports: none Physical Exam - General Limitations: no limitations General appearance: alert, in no apparent distress - Head Head exam: atraumatic - Eye Eye exam: Present: normal appearance, PERRL - ENT ENT exam: normal exam, normal oropharynx - Neck Neck exam: Present: normal inspection - Chest Chest inspection: Present: normal inspection - Respiratory Respiratory exam: Present: normal lung sounds bilaterally. Absent: respiratory distress - Cardiovascular Cardiovascular exam: Present: regular rate, normal rhythm - Abdominal Exam Abdominal exam: Present: soft, Non-Tender - Extremities Exam Extremities exam: Present: other (A couple of toes with distal abrasions and fissure). Absent: pedal edema - Neurological Exam Neurological exam: Present: alert - Psychiatric Psychiatric exam: Present: normal affect, normal mood - Skin Skin exam: Present: warm, dry Course Course Narrative: Alcohol level is elevated. Repeat alcohol level at 2200. [place] slip due to to threat of self-harm. He keeps on attempting to the low from the emergency department. He has been stopped by security numerous times. We will give him some Ativan and Benadryl for its sedative effect to help him relax while waiting for his alcohol level to decrease. We will watch him closely due to the combination of alcohol and the benzodiazepine. Signed out to the night team for final disposition pending 1A evaluation Vital Signs Temperature 98.2 F 07/27/17 15:20 Pulse Rate 101 07/27/17 15:20 Respiratory Rate 16 07/27/17 15:20 Blood Pressure 136/89 07/27/17 15:20 O2 Sat by Pulse Oximetry 95 07/27/17 15:20 Temperature 98.2 F 07/27/17 15:20 Pulse Rate 87 07/27/17 18:59 Respiratory Rate 14 07/27/17 18:59 Blood Pressure 144/89 07/27/17 18:59 O2 Sat by Pulse Oximetry 94 07/27/17 18:59 Oxygen Delivery Oxygen Delivery Room Air Medical Decision Making - Medical Records Medical records reviewed: Yes I reviewed the patient's medical records. - Lab Data Lab results reviewed: Yes I reviewed the patient's lab results. Result diagrams: 07/27/17 15:53 07/27/17 15:53 Lab Results 07/27/17 07/27/17 07/27/17 Range/Units 15:31 15:31 15:53 WBC 5.6 (4.3-11.1) K/mcL RBC 4.32 (4.19-5.50) M/mcL Hgb 13.7 (12.9-16.9) g/dL Hct 39.9 (37.5-50.1) % MCV 92.4 (83.0-100.0) fL MCH 31.7 (28.0-33.3) pg MCHC 34.3 (31.6-35.5) g/dL RDW 14.7 H (11.5-14.5) % Plt Count 178 (140-400) K/mcL MPV 9.5 (9.4-12.4) fL Immature Gran % 0.2 (0-4) % Seg Neutrophils % 53.1 % Lymphocytes % 36.2 % Monocytes % 8.2 % Eosinophils % 1.6 % Basophils % 0.7 % Neutrophils # 3.0 (1.6-8.9) K/mcL Lymphocytes # 2.0 (0.6-4.6) K/mcL Monocytes # 0.5 (0.0-1.3) K/mcL Eosinophils # 0.1 (0.0-0.6) K/mcL Basophils # 0.0 (0.0-0.2) K/mcL Immature Plt Fraction 3.8 (1.1-6.1) % Sodium (136-145) mEq/L Potassium (3.5-4.5) mEq/L Chloride (98-109) mEq/L Carbon Dioxide (19-29) mEq/L BUN (8-26) mg/dL Creatinine (0.72-1.25) mg/dL Est GFR ( Amer) (> 60) Est GFR (Non-Af Amer) (> 60) BUN/Creatinine Ratio (6-26) Glucose (70-99) mg/dL Calculated Osmolality (280-300) Calcium (8.6-10.8) mg/dL Urine Color Yellow (Yellow) Urine Clarity Clear (Clear) Urine pH 7.0 (5.0-8.0) pH Units Ur Specific [place] 1.014 (1.010-1.025) Urine Protein 30 H (Neg-Trace) mg/dL Urine Glucose (UA) Normal (Normal) mg/dL Urine Ketones Trace H (Negative) mg/dL Urine Blood Negative (Negative) Urine Nitrite Negative (Negative) Urine Bilirubin Negative (Negative) Urine Urobilinogen Normal (Normal) mg/dL Ur Leukocyte Esterase Negative (Negative) Urine Microscopic RBC 0-3 (0-3) per hpf Urine Microscopic WBC 0-3 (0-3) per hpf Ur Squamous Epith Cells Moderate H (None-Few) per lpf Urine Bacteria None Seen (None-Few) per hpf Hyaline Casts None Seen (None-Few) per lpf Salicylates (15-30) mg/dL Urine Opiates Screen Negative (Lpdrqz=699) ng/mL Acetaminophen (10-30) mcg/mL Ur Barbiturates Screen Negative (Iozsgc=074) ng/mL Ur Phencyclidine Scrn Negative (Cutoff=25) ng/mL Ur Amphetamines Screen Negative (Sswfbc=5605) ng/mL U Benzodiazepines Scrn Negative ([place]=721) ng/mL Urine Cocaine Screen Positive H (Cutoff= 300) ng/mL U Marijuana (THC) Screen Positive H (Cutoff = 50) ng/mL Ethyl Alcohol (0-10) mg/dL 07/27/17 Range/Units 15:53 WBC (4.3-11.1) K/mcL RBC (4.19-5.50) M/mcL Hgb (12.9-16.9) g/dL Hct (37.5-50.1) % MCV (83.0-100.0) fL MCH (28.0-33.3) pg MCHC (31.6-35.5) g/dL RDW (11.5-14.5) % Plt Count (140-400) K/mcL MPV (9.4-12.4) fL Immature Gran % (0-4) % Seg Neutrophils % % Lymphocytes % % Monocytes % % Eosinophils % % Basophils % % Neutrophils # (1.6-8.9) K/mcL Lymphocytes # (0.6-4.6) K/mcL Monocytes # (0.0-1.3) K/mcL Eosinophils # (0.0-0.6) K/mcL Basophils # (0.0-0.2) K/mcL Immature Plt Fraction (1.1-6.1) % Sodium 142 (136-145) mEq/L Potassium 4.2 (3.5-4.5) mEq/L Chloride 107 (98-109) mEq/L Carbon Dioxide 20 (19-29) mEq/L BUN 11 (8-26) mg/dL Creatinine 1.03 (0.72-1.25) mg/dL Est GFR ( Amer) > 60 (> 60) Est GFR (Non-Af Amer) > 60 (> 60) BUN/Creatinine Ratio 11 (6-26) Glucose 109 H (70-99) mg/dL Calculated Osmolality 294 (280-300) Calcium 8.7 (8.6-10.8) mg/dL Urine Color (Yellow) Urine Clarity (Clear) Urine pH (5.0-8.0) pH Units Ur Specific [place] (1.010-1.025) Urine Protein (Neg-Trace) mg/dL Urine Glucose (UA) (Normal) mg/dL Urine Ketones (Negative) mg/dL Urine Blood (Negative) Urine Nitrite (Negative) Urine Bilirubin (Negative) Urine Urobilinogen (Normal) mg/dL Ur Leukocyte Esterase (Negative) Urine Microscopic RBC (0-3) per hpf Urine Microscopic WBC (0-3) per hpf Ur Squamous Epith Cells (None-Few) per lpf Urine Bacteria (None-Few) per hpf Hyaline Casts (None-Few) per lpf Salicylates < 5.0 L (15-30) mg/dL Urine Opiates Screen (Vkiewu=249) ng/mL Acetaminophen < 1.0 L (10-30) mcg/mL Ur Barbiturates Screen (Klamdf=921) ng/mL Ur Phencyclidine Scrn (Cutoff=25) ng/mL Ur Amphetamines Screen (Fjvbid=5799) ng/mL U Benzodiazepines Scrn (Mzljva=782) ng/mL Urine Cocaine Screen (Cutoff= 300) ng/mL U Marijuana (THC) Screen (Cutoff = 50) ng/mL Ethyl Alcohol 202 H (0-10) mg/dL - Radiology Data Radiology results reviewed: Yes I reviewed the patient's radiology results.
--- NOTE | 2017-07-27 17:43 | Emergency Department Note ---
START Narrative - START START: I examined this patient and my medical decision-making was reviewed with the Resident Physician. I agree with the documented findings, disposition and treatment plan as described except to the extent set forth below. 57-year-old male presented to the emergency room for psychiatric evaluation. Patient is having suicidal ideation wanting to kill himself. States he had a plan of shooting himself in the head. No homicidal thoughts. Do a psychiatric evaluation after he is medically cleared.
[2017-07-27] MEDS: Nicotine 14 MG PATCH.TD24 TD SCH (18:17)
[2017-07-27] MEDS ORDERED: *HR* LORazepam 1 MG TABLET PO ONE ×2 (18:55→19:49)
[2017-07-27] MEDS ORDERED: Ondansetron ODT 4 MG TAB.RAPDIS SL ONE (21:28)
--- NOTE | 2017-07-27 23:25 | Emergency Department Note ---
START Narrative - START START: accepted sign out from Dr. Jeffries we are waiting for 1A reccomendation and will follow through with their plan. Before we consult 1A We will need a repeat ETOH at 0500 before consulting 1A
[2017-07-28] MEDS ORDERED: *HR* LORazepam 1 MG TABLET PO ONE ×3 (03:18→09:24)
[2017-07-28] MEDS: Nicotine 21 MG PATCH.TD24 TD SCH ×2 (09:29→19:40)
[2017-07-28] MEDS ORDERED: *HR* LORazepam 2 MG/ML VIAL IVP PRN ×2 (10:08)
[2017-07-28] MEDS: Nicotine 14 MG PATCH.TD24 TD SCH (10:24)
[2017-07-28] MEDS ORDERED: Ondansetron 4 MG/2 ML VIAL IVP PRN (10:53)
[2017-07-28] MEDS ORDERED: Naloxone 0.4 MG/ML INJ IVP PRN (10:53)
[2017-07-28] MEDS: *HR* HYDROcodone/Acet 5/325 mg TABLET PO PRN ×2 (11:59→19:38)
--- NOTE | 2017-07-28 12:17 | Internal Med History&Physical ---
Date of Encounter: 07/28/17 Time of Encounter: 09:45 Assessment and Plan (1) Alcohol withdrawal Current visit: No Status: Acute Pt reports hx of DTs. Currently he is not hallucinating or significantly tremulous. Will start CIWA protocol. Hold on Librium for now. Thiamine and folate ordered as well. Qualifiers: Complication of substance-induced condition: uncomplicated Qualified Code(s ): F10.230 - Alcohol dependence with withdrawal, uncomplicated (2) Depression Current visit: No Status: Chronic [place] slipped at this time. Plan for d/c to inpatient psych. Qualifiers: Depression Type: other depression Qualified Code(s): F32.89 - Other specified depressive episodes (3) Suicidal ideation Current visit: Yes Status: Acute [place] slipped. Sitter ordered. (4) Polysubstance abuse Current visit: No Status: Chronic Monitor. (5) Chronic hepatitis C Current visit: Yes Status: Chronic Supportive care. Qualifiers: Hepatic coma status: without hepatic coma Qualified Code(s): B18.2 - Chronic viral hepatitis C (6) Colon cancer Current visit: Yes Status: Resolved Resected in past. Qualifiers: Colon location: unspecified part of colon Qualified Code(s): C18.9 - Malignant neoplasm of colon, unspecified Internal Medicine - H&P: HPI Admitted From: Emergency Dept Plans for Post Hospital Care: Transfer Psych Facility History of present illness: Mr. Pro is a 57 year old male with hx of depression and chronic alcoholism presented to ED with suicidal ideation. He has been admitted to psych in the past for similar issues. He stated he is on no psych meds and uses alcohol for control. He drinks 2-3 pints vodka daily. He has had DTs in the past. He also has a hx of postherpetic neuralgia on L forehead and L eye has been red and draining. He is also homeless. He was evaluated by psych in ED and requested that he have a medical admission first due to alcohol withdrawal. Currently his complaints are head pain from neuralgia and shakiness. Pt is currently high risk due to potential for DTs. Past Med Surg Social Fam HX - Past Medical History Medical history: cancer (Colon resected), hepatitis (Hep C) Psychiatric history: anxiety, depression, previous psychiatric hospitalization - Past Surgical History Surgical History: appendectomy, colectomy - Social History Smoking Status: Current every day smoker Smokeless Tobacco Status: No Alcohol use: heavy Drug use: none Occupational status: unemployed Current living situation: Homeless Activity Level: Independent ambulation - Family History Mother History Unknown: Yes Father History Unknown: Yes Internal Medicine - H&P: Meds Unable To Obtain [Unable to Obtain] 07/28/17 [History] 3 Allergy/AdvReac Type Severity Reaction Status Date / Time No Known Allergies Allergy Verified 04/21/15 13:40 All Systems PM: A 10-system review of systems was performed and is negative for pertinent findings except as documented above in the HPI. - Constitutional Constitutional: chills - EENT Eyes: discharge (L eye), itchy eyes, no pain Ears: no decreased hearing, no ear discharge Nose, mouth and throat: no dry mouth, no mouth pain, no neck pain, no sinus pain - Cardiovascular Cardiovascular ROS IM: no chest pain, no dyspnea, no dyspnea on exertion, no syncope - Respiratory Respiratory: no cough, no dyspnea on exertion - Gastrointestinal Gastrointestinal: no bloating, no constipation, no cramping, no diarrhea, no heartburn, no melena - Genitourinary Genitourinary ROS male: no dysuria, no nocturia, no urinary frequency - Musculoskeletal Musculoskeletal ROS IM: arthralgias, no joint swelling, no limited range of motion, no numbness - Integumentary Integumentary IM: no erythema, no rash - Neurological Neurological ROS: tremor(s), no abnormal gait, no confusion, no convulsions, no dizziness, no memory loss - Psychiatric Psychiatric: depression, suicidal ideation - Endocrine Endocrine IM: no cold intolerance, no flushing - Hematologic/Lymphatic Hematologic/Lymphatic: no easy bleeding - Allergic/Immunologic Allergic/Immunologic: no tongue swelling - Constitutional Vitals: Temp Pulse Resp BP Pulse Ox 98.2 F 69 16 138/89 97 07/27/17 15:20 07/28/17 09:01 07/28/17 09:43 07/28/17 09:43 07/28/17 09:01 General appearance: Present: mild distress, A&O X 3, answers questions appropriately - Head Head exam: Present: normocephalic - Eye Eye exam: Present: conjunctival injection (Left with some drainage), EOMI Pupils: Present: PERRL - ENT ENT exam: Present: mucous membranes moist - Neck Neck exam general surgery: Present: supple, trachea midline. Absent: thyromegaly - Respiratory Respiratory exam: Present: CTAB. Absent: rales, rhonchi, wheezes - Cardiovascular Cardiovascular exam: Present: RRR. Absent: systolic murmur, tachycardia - GI/Abdominal GI/Abdominal exam: Present: soft. Absent: tenderness Additional comments: Suspect hepatomegaly - Extremities Exam Extremities exam: Present: full ROM, warm. Absent: pedal edema, tenderness - Back Exam Back exam: Present: full ROM. Absent: tenderness - Neurological Exam Neurological exam: Present: alert, oriented X3, no focal deficits Additional comments: Slight tremor - Psychiatric Psychiatric exam: Present: depressed, suicidal ideation - Skin Skin exam: Present: warm. Absent: rash Internal Med - H&P Results - Labs CBC & Chem 7: 07/27/17 15:53 07/27/17 15:53
[2017-07-28] MEDS: *HR* LORazepam 2 MG/ML VIAL IVP PRN ×3 (14:28→22:36)
[2017-07-29] MEDS: *HR* LORazepam 2 MG/ML VIAL IVP PRN ×2 (02:40→08:01)
[2017-07-29] MEDS: *HR* HYDROcodone/Acet 5/325 mg TABLET PO PRN (05:37)
[2017-07-29 06:25] LABS: Basophils % 0.6 %; Eosinophils # 0.2 K/mcL (0.0-0.6); Hematocrit 39.9 % (37.5-50.1); Hemoglobin 13.5 g/dL (12.9-16.9); Immature Granulocytes % 0.2 % (0-4); Lymphocytes # 1.5 K/mcL (0.6-4.6); Lymphocytes % 28.3 %; Mean Corpuscular HGB Conc 33.8 g/dL (31.6-35.5); Mean Corpuscular Hemoglobin 31.3 pg (28.0-33.3); Mean Corpuscular Volume 92.4 fL (83.0-100.0); Mean Platelet Volume 9.7 fL (9.4-12.4); Monocytes # 0.6 K/mcL (0.0-1.3); Monocytes % 11.8 %; Platelet Count 112 K/mcL (140-400); Red Blood Count 4.32 M/mcL (4.19-5.50); Red Cell Distribution Width 14.1 % (11.5-14.5); Segmented Neutrophils % 56.1 %
[2017-07-29 06:37] LABS: BUN/Creatinine Ratio 14 (6-26); Blood Urea Nitrogen 14 mg/dL (8-26); Calcium 8.9 mg/dL (8.6-10.8); Carbon Dioxide 25 mEq/L (19-29); Chloride 104 mEq/L (98-109); Glucose 99 mg/dL (70-99); Magnesium 1.8 mg/dL (1.6-2.6); Osmolality,Calculated 287 (280-300); Potassium 4.4 mEq/L (3.5-4.5); Sodium 138 mEq/L (136-145); eGFR For African Americans > 60 (> 60); eGFR For Non-African Americans > 60 (> 60)
[2017-07-29 06:53] VITALS: BP 151/97
[2017-07-29] MEDS: Nicotine 21 MG PATCH.TD24 TD SCH (07:52)
[2017-07-29] MEDS ORDERED: Folic Acid 1 MG TABLET PO SCH (09:00)
[2017-07-29] MEDS ORDERED: Vitamin B Complex/Vit C/Vit E 1 EACH TABLET PO SCH (09:00)
[2017-07-29] MEDS ORDERED: Thiamine (B-1) 100 MG TABLET PO SCH (09:00)
--- NOTE | 2017-07-29 11:23 | Consult Note ---
Date of Encounter: 07/29/17 Time of Encounter: 11:00 Assessment & Recommendation (1) Adjustment disorder Status: Acute Assessment & Recommendation: Patient was reporting suicidal ideation when he presented to the hospital intoxicated. He does report a history of alcohol and drug abuse. He denies any current suicidal ideation and reports he said this in order to get him out of the cold. He would like resources on outpatient treatment of substance abuse. He does not feel he needs medications for depression at this time. He does not meet criteria for inpatient admission and I would recommend outpatient substance abuse treatment. . Qualifiers: Adjustment disorder type: with mixed disturbance of emotions and conduct Qualified Code(s): F43.25 - Adjustment disorder with mixed disturbance of emotions and conduct (2) Alcohol dependence Status: Acute Assessment & Recommendation: Patient has a long-standing history of alcohol. Consider outpatient rehabilitation or resources to help patient remains sober. Qualifiers: Substance use status: uncomplicated Qualified Code(s): F10.20 - Alcohol dependence, uncomplicated History of Present Illness Patient: new to practice Requesting Physician: Coretta Puenet CNP Reason for consult: SI, alcohol dependance History of present illness: Mr. Pro is a 57 year old male with a history of drug abuse and alcohol dependency presented to the hospital intoxicated. When he was sober from alcohol he reported that he wants to kill himself. However, he uses a large amount of alcohol on a daily basis and patient was admitted to the medical floor for monitoring and alcohol withdrawal. He has been cleared medically and patient now denies suicidal ideations. He reports that he is not depressed and he does not wish to stop drinking. He is interested in talking to a counselor about substance abuse. He reports he said he was suicidal so he could come to the hospital and get warm. He denies previous attempts. He is looking forward to going back to his [place] where his girlfriend lives. He denies psychotic or manic symptoms. He is alert and oriented 3. CC: Coretta Puente CNP Past Med Surg Social Fam HX - Past Medical History Medical history: cancer (Colon resected), hepatitis (Hep C) - Past Psychiatric History Psychiatric history: Reports: other (Alcohol dependence). Denies: no psych history, prior suicide attempt, previous psychiatric hospitalization Family psychiatric history: No Family History of Suicide: None - Past Surgical History Surgical History: appendectomy, colectomy - Social History Smoking Status: Current every day smoker Smokeless Tobacco Status: No Alcohol use: heavy Drug use: none - Family History Mother History Unknown: Yes Father History Unknown: Yes Medications & Allergies Folic Acid 1 mg PO DAILY #30 tablet 07/29/17 [Rx] Thiamine (B-1) [Vitamin B-1] 100 mg PO DAILY #30 tablet 07/29/17 [Rx] 3 Allergy/AdvReac Type Severity Reaction Status Date / Time No Known Allergies Allergy Verified 04/21/15 13:40 Review of Systems Constitutional: Denies: fever, chills, weakness, weight change Eyes: Denies: eye pain, vision change Ears, Nose, Throat: Denies: ear pain, throat pain, dental pain, hearing loss, congestion Cardiovascular: Denies: chest pain, palpitations, dyspnea on exertion Respiratory: Denies: cough, dyspnea, wheezes Gastrointestinal: Denies: abdominal pain, nausea, vomiting, diarrhea, constipation Genitourinary male: Denies: urgency, dysuria, frequency, genital lesions Genitourinary female: Denies: urgency, dysuria, frequency, abnormal menses, dyspareunia Musculoskeletal: Denies: joint swelling, joint pain Integumentary: Denies: rash, lesions, pruritus Neurological: Denies: headache, weakness, numbness, memory loss Psychiatric: Reports: abnormal sleep pattern Endocrine: Denies: fatigue, heat or cold intolerance Hematologic/Lymphatic: Denies: easy bruising, lymphadenopathy Allergic/Immunologic: Denies: urticaria, itchy eyes Mental Status Exam Patient orientation: Yes Person, Yes Time, Yes Place Level of alertness: Alert Patient appearance: Appropriate, Well Groomed Behavior: calm, cooperative Psychomotor activity: Normal Eye contact: Maintains Eye Contact Mood description: Euthymic/stable Affect description: congruent with mood, full range Speech pattern: Normal rate, Normal rhythm, Normal tone Speech volume: Normal Thought process: Linear, Goal Oriented Thought content: No Suicidal ideation, No Homicidal ideation, No Overt delusions Perceptual disturbances: No Auditory hallucinations, No Visual hallucinations Attention span: Capable of Focused Attention Memory description: Grossly Intact Patient reliability: Reliable Historian Intelligence estimate: Average Judgment: Limited Insight: Partial Results - Vital Signs Vital signs: Temp Pulse Resp BP Pulse Ox 98.8 F 66 20 151/97 94 07/29/17 06:53 07/29/17 06:53 07/29/17 06:53 07/29/17 06:53 07/29/17 06:53 - Labs Labs: Laboratory Last Values WBC 5.3 K/mcL (4.3-11.1) 07/29/17 06:15 RBC 4.32 M/mcL (4.19-5.50) 07/29/17 06:15 Hgb 13.5 g/dL (12.9-16.9) 07/29/17 06:15 Hct 39.9 % (37.5-50.1) 07/29/17 06:15 MCV 92.4 fL (83.0-100.0) 07/29/17 06:15 MCH 31.3 pg (28.0-33.3) 07/29/17 06:15 MCHC 33.8 g/dL (31.6-35.5) 07/29/17 06:15 RDW 14.1 % (11.5-14.5) 07/29/17 06:15 Plt Count 112 K/mcL (140-400) L 07/29/17 06:15 MPV 9.7 fL (9.4-12.4) 07/29/17 06:15 Immature Gran % 0.2 % (0-4) 07/29/17 06:15 Seg Neutrophils % 56.1 % 07/29/17 06:15 Lymphocytes % 28.3 % 07/29/17 06:15 Monocytes % 11.8 % 07/29/17 06:15 Eosinophils % 3.0 % 07/29/17 06:15 Basophils % 0.6 % 07/29/17 06:15 Neutrophils # 3.0 K/mcL (1.6-8.9) 07/29/17 06:15 Lymphocytes # 1.5 K/mcL (0.6-4.6) 07/29/17 06:15 Monocytes # 0.6 K/mcL (0.0-1.3) 07/29/17 06:15 Eosinophils # 0.2 K/mcL (0.0-0.6) 07/29/17 06:15 Basophils # 0.0 K/mcL (0.0-0.2) 07/29/17 06:15 Immature Plt Fraction 3.8 % (1.1-6.1) 07/27/17 15:53 Sodium 138 mEq/L (136-145) 07/29/17 06:15 Potassium 4.4 mEq/L (3.5-4.5) 07/29/17 06:15 Chloride 104 mEq/L (98-109) 07/29/17 06:15 Carbon Dioxide 25 mEq/L (19-29) 07/29/17 06:15 BUN 14 mg/dL (8-26) 07/29/17 06:15 Creatinine 1.02 mg/dL (0.72-1.25) 07/29/17 06:15 Est GFR ( Amer) > 60 (> 60) 07/29/17 06:15 Est GFR (Non-Af Amer) > 60 (> 60) 07/29/17 06:15 BUN/Creatinine Ratio 14 (6-26) 07/29/17 06:15 Glucose 99 mg/dL (70-99) 07/29/17 06:15 Calculated Osmolality 287 (280-300) 07/29/17 06:15 Calcium 8.9 mg/dL (8.6-10.8) 07/29/17 06:15 Magnesium 1.8 mg/dL (1.6-2.6) 07/29/17 06:15 Urine Color Yellow (Yellow) 07/27/17 15:31 Urine Clarity Clear (Clear) 07/27/17 15:31 Urine pH 7.0 pH Units (5.0-8.0) 07/27/17 15:31 Ur Specific [place] 1.014 (1.010-1.025) 07/27/17 15:31 Urine Protein 30 mg/dL (Neg-Trace) H 07/27/17 15:31 Urine Glucose (UA) Normal mg/dL (Normal) 07/27/17 15:31 Urine Ketones Trace mg/dL (Negative) H 07/27/17 15:31 Urine Blood Negative (Negative) 07/27/17 15: Urine Nitrite Negative (Negative) 07/27/17 15:31 Urine Bilirubin Negative (Negative) 07/27/17 15:31 Urine Urobilinogen Normal mg/dL (Normal) 07/27/17 15:31 Ur Leukocyte Esterase Negative (Negative) 07/27/17 15:31 Urine Microscopic RBC 0-3 per hpf (0-3) 07/27/17 15:31 Urine Microscopic WBC 0-3 per hpf (0-3) 07/27/17 15:31 Ur Squamous Epith Cells Moderate per lpf (None-Few) H 07/27/17 15:31 Urine Bacteria None Seen per hpf (None-Few) 07/27/17 15:31 Hyaline Casts None Seen per lpf (None-Few) 07/27/17 15:31 Salicylates < 5.0 mg/dL (15-30) L 07/27/17 15:53 Urine Opiates Screen Negative ng/mL (Jqnssq=974) 07/27/17 15:31 Acetaminophen < 1.0 mcg/mL (10-30) L 07/27/17 15:53 Ur Barbiturates Screen Negative ng/mL (Qgbxxx=922) 07/27/17 15:31 Ur Phencyclidine Scrn Negative ng/mL (Cutoff=25) 07/27/17 15:31 Ur Amphetamines Screen Negative ng/mL (Bhhphw=0920) 07/27/17 15:31 U Benzodiazepines Scrn Negative ng/mL (Nslhhv=544) 07/27/17 15:31 Urine Cocaine Screen Positive ng/mL (Cutoff= 300) H 07/27/17 15:31 U Marijuana (THC) Screen Positive ng/mL (Cutoff = 50) H 07/27/17 15:31 Ethyl Alcohol < 10 mg/dL (0-10) 07/28/17 05:55 Consult Discharge Plan - Plan Additional Instructions: Please follow up with your primary care physician within five days after your discharge from the hospital. Alcohol cessation is recommended continue folate and thiamine supplementation Referrals: NONE,PCP [Primary Care Provider] - Prescriptions: Folic Acid 1 mg PO DAILY #30 tablet Thiamine (B-1) [Vitamin B-1] 100 mg PO DAILY #30 tablet
--- NOTE | 2017-07-29 12:37 | Discharge Summary ---
Date of Encounter: 07/29/17 Time of Encounter: 12:05 - Discharge Diagnosis (1) Alcohol abuse Priority: Secondary Status: Chronic (2) Alcohol withdrawal Priority: Secondary Status: Acute Qualifiers: Complication of substance-induced condition: uncomplicated Qualified Code(s ): F10.230 - Alcohol dependence with withdrawal, uncomplicated (3) DVT prophylaxis Priority: Secondary Status: Acute (4) Suicidal ideation Priority: Primary Status: Acute - Discharge Medications Prescriptions: Folic Acid 1 mg PO DAILY #30 tablet Thiamine (B-1) [Vitamin B-1] 100 mg PO DAILY #30 tablet Home Medications: Folic Acid 1 mg PO DAILY #30 tablet 07/29/17 [Rx] Thiamine (B-1) [Vitamin B-1] 100 mg PO DAILY #30 tablet 07/29/17 [Rx] Allergies/Adverse Reactions: 3 Allergy/AdvReac Type Severity Reaction Status Date / Time No Known Allergies Allergy Verified 04/21/15 13:40 Date of admission: 07/28/17 08:31 Primary care physician: PCP NONE Consults: 07/28/17 10:43 Consult to [facility]per [CONS] Routine Reason for SW Consult: pt is homeless 07/28/17 10:56 Consult to Psychiatry [CONS] Routine Consulting Provider: Psychiatry Mary Reason for Consult: Suicidal. Pt seen in ED. Please follow Call Completed: Yes Discharging clinician: Farheen Burroughs Anticipated date of discharge: 07/29/17 - Patient Status Disposition: Home, Self-Care Condition: Good Functional capacity at discharge: independent ambulation Overall status at discharge: patient is back to baseline - Discharge Instructions Follow Up With: NONE,PCP [Primary Care Provider] - Additional Instructions: Please follow up with your primary care physician within five days after your discharge from the hospital. Alcohol cessation is recommended continue folate and thiamine supplementation - Diet and Activity Activity: resume usual activities as tolerated Diet: advance to your usual diet Hospital course: Mr. Pro is a 57 year old male with PMH of polysubstance abuse, alcohol abuse who presented to the ER with suicidal ideation. He was further admitted to medical service for concern for alcohol withdrawal and psychiatry was consulted. Patient was seen by psychiatry and stated that he is does not have any plans or thoughts of hurting himself, he said those things so he could be admitted as it was cold outside and he is homeless. At this time he is hemodynamically stable, no signs of alcohol withdrawal, and is clear for discharge by psych. Outpatient follow up with psych is recommended. Pt will be discharged today. [employer] services dispatcher have evaluated the patient and has provided the patient with resources. - Time Spent with Patient Total time spent providing and/or coordinating discharge services: Less than 30 minutes - Constitutional Vitals: Temp Pulse Resp BP Pulse Ox 98.8 F 66 20 151/97 94 07/29/17 06:53 07/29/17 06:53 07/29/17 06:53 07/29/17 06:53 07/29/17 06:53 General appearance: Present: A&O X 3, no acute distress, answers questions appropriately - Head Head exam: Present: atraumatic, normocephalic - Eye Eye exam: Present: conjuntiva pink, sclera anicteric - Respiratory Respiratory exam: Present: CTAB. Absent: accessory muscle use, rales, rhonchi, wheezes - Cardiovascular Cardiovascular exam: Present: RRR, +S1, +S2. Absent: diastolic murmur, gallop, rubs, systolic murmur - GI/Abdominal GI/Abdominal exam: Present: normal bowel sounds, soft, no peritoneal signs. Absent: distended, tenderness - Extremities Exam Extremities exam: Present: warm, radial pulses palpable and symmetrical. Absent : calf tenderness, cyanotic, pedal edema - Neurological Exam Neurological exam: Present: alert, oriented X3 - Psychiatric Psychiatric exam: Present: normal affect, normal mood. Absent: homicidal ideation, suicidal ideation
== END 2017-07-29 12:55 | disposition home or self-care (01) ==
LOC: EMEROO 15:16 → 3BNU 15:16
PROVIDERS: ADMIT Internal Medicine; ATTEND Registered Nurse